=== PATIENT | male | born 1995 | race Two or more races ===

== ENCOUNTER 2025-02-19 02:49 | Emergency (ER) | payer BC ==
[~2025-02-19] VITALS: Ht 185.4 cm; Wt 83.9 kg
[2025-02-19 03:07] VITALS: BP 148/90; O2SAT 95
[2025-02-19] MEDS ORDERED: IPRATROPIUM BROMIDE 0.5 MG/2.5 ML AMPUL.NEB IH STA (03:19)
[2025-02-19] MEDS ORDERED: METHYLPREDNISOLONE SOD SUCC 125 MG VIAL IM STA (03:20)
[2025-02-19] MEDS ORDERED: LEVALBUTEROL HCL 0.63 MG/3 ML SOLUTION IH SCH (03:30)
[2025-02-19 05:47] LABS: BASO % 0.3 % (0.1-1.2); EOS # 0.54 (0.04-0.54); EOS % 7.8 % (0.7-7.0); LYMPH # 1.18 (1.18-3.74); LYMPH % 17.2 % (19.3-53.1); MEAN PLATELET VOLUME 10.60 fl (9.4-12.4); MONO # 0.65 (0.24-0.82); MONO % 9.4 % (4.7-12.5); NEUT # 4.48 (1.56-6.13); NEUT % 65.2 % (34.0-71.1); RED CELL DISTRIBUTION WIDTH 12.0 % (11.6-14.4)
[2025-02-19 05:55] LABS: ERYTHROCYTE SEDIMENTATION RATE 2 mm/hr (0-15)
[2025-02-19 06:08] LABS: INR 1.04
[2025-02-19 06:38] LABS: COVID-19 AG NEGATIVE (NEGATIVE)
[2025-02-19 06:39] LABS: ALT/SGPT 26 U/L (12-78); AST/SGOT 17 U/L (15-37); BILIRUBIN TOTAL 0.71 mg/dL (0.3-1.2); BUN CREA RATIO 13 (7.0-25.0); CREATININE SERUM 0.95 mg/dL (0.70-1.30); GFR 91.87; GLOBULINA 3.3 G/DL (2.4-3.5); GLUCOSE FASTING 97 mg/dL (65-100); OSMOLALITY SERUM 283 MOSM/KG (275-295)
[2025-02-19] MEDS ORDERED: IPRATROPIUM BROMIDE 0.5 MG/2.5 ML AMPUL.NEB IH SCH ×2 (08:45→10:45)
[2025-02-19] MEDS ORDERED: ALBUTEROL SULFATE 3 ML/2.5 MG AMPUL.NEB IH SCH (10:45)
[2025-02-19] MEDS ORDERED: ALBUTEROL SULFATE 3 ML/2.5 MG AMPUL.NEB IH ONE (11:33)
[2025-02-19] MEDS ORDERED: IPRATROPIUM BROMIDE 0.5 MG/2.5 ML AMPUL.NEB IH ONE (11:33)
== END 2025-02-19 13:58 | disposition home or self-care (01) ==
LOC: ER 02:50
PROVIDERS: Physician Assistant Medical
DX: J45.901 Unspecified asthma with (acute) exacerbation (principal); R06.02 Shortness of breath; R05.8 Other specified cough; R07.89 Other chest pain; R06.09 Other forms of dyspnea; Z20.822 Contact with and (suspected) exposure to COVID-19